=== PATIENT | male | born 1970 | race Caucasian/White ===

== ENCOUNTER 2016-08-01 23:57 | Emergency (ER) | payer OTHER ==
[~2016-08-01] VITALS: Ht 172.7 cm; Wt 111.1 kg
--- NOTE | 2016-08-02 00:14 | PHYS DOC ---
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 The patient arrives today by EMS. No interventions given in route. He is feeling much better currently. He does feel mildly nauseated. Onset today. Location lungs. Duration intermittent. No alleviating or exacerbating factors. He denies any intentional huffing. Review of systems is negative for chest pain, pain vomiting. Positive for mild nausea. All other review of systems is negative unless otherwise noted in history of present illness. Pertinent physical exam findings the lungs are clear to auscultation. Cardiac auscultation shows a normal rate and irregular rhythm without a murmur. Otherwise the abdomen is soft and nontender. ED course: 46-year-old gentleman presenting with coughing after inhaling ammonia fumes at work. Vital signs saturating well on room air. Lungs were clear to auscultation. I give the patient DuoNeb in the emergency department and we obtained an EKG which was unremarkable along with a chest x-ray which showed atelectasis. On reexamination he is feeling better. The patient was then discharged home in stable condition to follow up with their primary care physician over the next 2-3 days. They were to return if their symptoms worsened or if they were concerned for any reason. [id number] discharge instructions and return precautions were given. Patient's questions were answered to their satisfaction. Patient is comfortable plan. Review of Systems Review of Systems see above Current Medications Current Medications Current Medications Medications (Trade) Dose Ordered Sig/[facility] Start Time Stop Time Status Last Admin Dose Admin Albuterol/ Ipratropium (Duoneb) 3 ml 1X ONCE 08/02/16 00:30 08/02/16 00:31 DC 08/02/16 00:13 3 ML Allergies Allergies Allergies Coded Allergies Type Severity Reaction Last Updated Verified No Known Drug Allergies 08/02/16 No Physical Exam Physical Exam Constitutional: Well developed, well nourished, no acute distress, non-toxic appearance. [] HENT: Normocephalic, atraumatic, bilateral external ears normal, oropharynx moist, no oral exudates, nose normal. [] Eyes: PERRLA, EOMI, conjunctiva normal, no discharge. [] Neck: Normal range of motion, no tenderness, supple, no stridor. [] Cardiovascular:Heart rate regular rhythm, no murmur [] Lungs & Thorax: see above Abdomen: Bowel sounds normal, soft, no tenderness, no masses, no pulsatile masses. [] Skin: Warm, dry, no erythema, no rash. [] Back: No tenderness, no CVA tenderness. [] Extremities: No tenderness, no cyanosis, no clubbing, ROM intact, no edema. [] Neurologic: Alert and oriented X 3, normal motor function, normal sensory function, no focal deficits noted. [] Psychologic: Affect normal, judgement normal, mood normal. [] Current Patient Data Vital Signs Vital Signs Date Time Temp Pulse Resp B/P (MAP) Pulse Ox O2 Delivery O2 Flow Rate FiO2 08/02/16 00:16 94 Room Air 08/02/16 00:03 99.0 80 20 157/91 (113) 99.0 EKG EKG [] Radiology/Procedures Radiology/Procedures [] Course & Med Decision Making Course & Med Decision Making Pertinent Labs and Imaging studies reviewed. (See chart for details) [] Dragon Disclaimer Dragon Disclaimer This electronic medical record was generated, in whole or in part, using a voice recognition dictation system. Departure Departure Impression: Primary Impression: Cough Disposition: 01 HOME, SELF-CARE Condition: STABLE Referrals: MOISES MURRAY MD Patient Instructions: Cough, Adult, Leuz-so-Gaxm Additional Instructions: Thank you for allowing us to participate in your care today. Followup with your primary care physician in 3 days if your symptoms do not improve. If you do not have a primary care provider you can ask for a list of our primary care providers. Return to the emergency department you have any new or concerning findings. This should be evaluated by the primary care physician and any necessary consulting services for continued management within a few days after discharge. Return to emergency room if you have any new or concerning symptoms including but not limited to fever, chills, nausea, vomiting, intractable pain, any new rashes, chest pain, shortness of air, uncontrolled bleeding, difficulty breathing, and/or vision loss. Scripts Albuterol Sulfate (PROAIR HFA INHALER) 8.5 Gm Hfa.aer.ad 1 PUFF INH PRN Q6HRS Y for COUGH, #1 INHALER 0 Refills Prov: ORTIZ CAVAZOS MD 08/02/16 ORTIZ CAVAZOS MD Aug 02, 2016 00:13
[2016-08-02] MEDS ORDERED: PROAIR HFA8.5 GM INH (00:17)
[2016-08-02] MEDS ORDERED: IPRATRPIUM/ALBUTEROL 0.5/2.5MG 3 ML NEBU. NEB ONE (00:30)
[2016-08-02 01:00] VITALS: BP 136/85
--- NOTE | 2016-08-02 07:54 | RAD ---
Indication sudden onset of cough shortness of air PA and lateral views of the chest were obtained. No prior imaging is available. Inspiratory effort is suboptimal. This is likely due, at least in part, to patient body habitus. Heart size, given the level of inspiratory effort, is within normal limits. Pulmonary vasculature is normal. No focal infiltrate is seen. IMPRESSION: Suboptimal inspiratory effort. No acute or focal process seen in the chest
--- NOTE | 2016-08-02 11:04 | EKG ---
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
== END 2016-08-02 01:08 | disposition home or self-care (01) ==
LOC: ER 23:57
DX: R05 Cough (principal); R11.0 Nausea; I10 Essential (primary) hypertension; E03.9 Hypothyroidism, unspecified
CPT/HCPCS: 71020; 93005; 94250; 94640; 99284; J7620